=== PATIENT | male | born 1935 | race Two or more races ===

== ENCOUNTER 2018-03-29 15:04 | Outpatient (CLI) | payer OTHER ==
[~2018-03-29 15:04] MED LIST: ASPIR 8181 MG; ATORVASTATIN CA20 MG; ENALAPRIL MALEA10 MG; ISOSORBIDE DINI30 MG; LIPITOR20 MG; PROSCAR5 MG; PROTONIX40 MG; TAMS0.4C; VASOTEC2.5 MG
== END 2018-03-29 15:07 | disposition home or self-care (01) ==
LOC: TOM 15:04
DX: I63.8 Other cerebral infarction (principal)

== ENCOUNTER 2018-10-26 22:54 | Emergency (ER) | payer OTHER ==
[~2018-10-26] VITALS: Ht 167.6 cm; Wt 90.7 kg
[2018-10-26] MEDS ORDERED: MEMANTINE HCL5 MG (23:20)
[2018-10-26] MEDS ORDERED: DONEPEZIL HCL O10 MG (23:20)
[2018-10-27] MEDS ORDERED: XOPENEX0.63 MG/3 IH (04:19)
[2018-10-27] MEDS ORDERED: ZYNCOF 20-400120 ML PO (04:19)
== END 2018-10-27 04:38 | disposition home or self-care (01) ==
LOC: ER 22:54
DX: J40 Bronchitis, not specified as acute or chronic (principal); J11.1 Influenza due to unidentified influenza virus with other respiratory manifestations

== ENCOUNTER 2019-09-03 14:01 | Emergency (ER) | payer OTHER ==
[~2019-09-03] VITALS: Ht 177.8 cm; Wt 99.8 kg
[~2019-09-03 14:01] MED LIST changes: +DONEPEZIL HCL O10 MG; +MEMANTINE HCL5 MG; +XOPENEX0.63 MG/3 IH; +ZYNCOF 20-400120 ML PO
[2019-09-03] MEDS ORDERED: OPTIMAL D350000 UNIT (14:16)
[2019-09-03] MEDS ORDERED: SIMVASTATIN5 MG (14:16)
[2019-09-03] MEDS ORDERED: ZANTAC150 M3 (14:17)
== END 2019-09-03 20:58 | disposition home or self-care (01) ==
LOC: ER 14:01
DX: M79.661 Pain in right lower leg (principal); R68.83 Chills (without fever)

== ENCOUNTER 2019-09-16 13:46 | Inpatient (IN) | payer OTHER ==
[~2019-09-16] VITALS: Ht 167.6 cm; Wt 95.3 kg
[~2019-09-16 13:46] MED LIST changes: +OPTIMAL D350000 UNIT; +SIMVASTATIN5 MG; +ZANTAC150 M3
[2019-09-23] MEDS ORDERED: SIMVASTATIN5 MG (15:32)
== END 2019-09-22 22:01 | disposition home or self-care (01) | DRG 689 ==
LOC: ER 13:46 → SEC-K 20:55 → MEDI 20:55
PROVIDERS: ADMIT Internal Medicine
PROC: BW21Y0Z Computerized Tomography (CT Scan) of Abdomen and Pelvis using Other Contrast, Unenhanced and Enhanced (ICD-10-PCS; principal; 2019-09-16)
PROC: BW28ZZZ Computerized Tomography (CT Scan) of Head (ICD-10-PCS; 2019-09-19)
PROC: 3E0F7GC Introduction of Other Therapeutic Substance into Respiratory Tract, Via Natural or Artificial Opening (ICD-10-PCS; 2019-09-19)
DX: N39.0 Urinary tract infection, site not specified (principal); J18.1 Lobar pneumonia, unspecified organism; Q61.02 Congenital multiple renal cysts; I67.82 Cerebral ischemia; K51.30 Ulcerative (chronic) rectosigmoiditis without complications; G93.49 Other encephalopathy; K52.89 Other specified noninfective gastroenteritis and colitis; N40.0 Benign prostatic hyperplasia without lower urinary tract symptoms; I10 Essential (primary) hypertension; I25.10 Atherosclerotic heart disease of native coronary artery without angina pectoris; N40.1 Benign prostatic hyperplasia with lower urinary tract symptoms; R35.1 Nocturia; R31.0 Gross hematuria; B96.29 Other Escherichia coli [E. coli] as the cause of diseases classified elsewhere; K57.30 Diverticulosis of large intestine without perforation or abscess without bleeding; E86.0 Dehydration; E87.8 Other disorders of electrolyte and fluid balance, not elsewhere classified; G20 Parkinson's disease; F02.80 Dementia in other diseases classified elsewhere, unspecified severity, without behavioral disturbance, psychotic disturbance, mood disturbance, and anxiety

== ENCOUNTER 2019-09-23 15:17 | Emergency (ER) | payer OTHER ==
[~2019-09-23] VITALS: Ht 172.7 cm; Wt 83.9 kg
[2019-09-23] MEDS ORDERED: SIMVASTATIN5 MG (15:32)
== END 2019-09-23 21:19 | disposition home or self-care (01) ==
LOC: ER 15:17
DX: R33.8 Other retention of urine (principal)

== ENCOUNTER 2019-10-03 17:24 | Emergency (ER) | payer OTHER ==
[~2019-10-03] VITALS: Ht 167.6 cm; Wt 90.7 kg
== END 2019-10-04 00:01 | disposition home or self-care (01) ==
LOC: ER 17:24
DX: T83.021A Displacement of indwelling urethral catheter, initial encounter (principal)